=== PATIENT | male | born 1980 | race Caucasian/White ===

== ENCOUNTER 2018-01-12 06:08 | Inpatient (IN) | payer OTHER ==
[~2018-01-12] VITALS: Ht 172.7 cm; Wt 72.6 kg
[2018-01-12] MEDS ORDERED: DEXTROSE 50%-WATER 50 ML DISP.SYRIN ONE ×2 (06:13→06:56)
[2018-01-12] MEDS ORDERED: IV NS 0.9% 1,000 ML BAG IV ONE (06:30)
[2018-01-12 07:00] LABS: BASOPHILS % (AUTO) 0.3 % (0.0-2.0); EOSINOPHILS # (AUTO) 0.2 /CMM (0.0-0.7); EOSINOPHILS % (AUTO) 2.3 % (0.0-6.0); HEMATOCRIT 37 % (39-51); HEMOGLOBIN 12.8 g/dL (13.5-17.5); LYMPHOCYTES # (AUTO) 1.8 /CMM (0.8-4.8); LYMPHOCYTES % (AUTO) 27.1 % (20.0-44.0); MEAN CORPUSCULAR HEMOGLOBIN 31 PG (26.0-33.0); MEAN CORPUSCULAR HGB CONC 35 g/dl (31.0-36.0); MEAN CORPUSCULAR VOLUME 89 fL (80-96); MONOCYTES # (AUTO) 0.3 /CMM (0.1-1.30); MONOCYTES % (AUTO) 3.9 % (2.0-12.0); NEUTROPHILS # (AUTO) 4.3 /CMM (1.8-8.9); NEUTROPHILS % (AUTO) 66.4 % (43.0-81.0); PLATELET COUNT (AUTO) 118 /CMM (150-450); RDW COEFFICIENT OF VARIATION 15.1 (11.5-15.0); RED BLOOD CELL COUNT(AUTO) 4.14 MIL/uL (4.5-6.0); WHITE BLOOD COUNT (AUTO) 6.6 K/uL (4.3-11.0)
[2018-01-12] MEDS ORDERED: DEXTROSE 50%-WATER 50 ML DISP.SYRIN IVP ONE ×2 (07:00)
[2018-01-12] MEDS ORDERED: IV D5/0.45 NACL 1,000 ML IV ONE (07:00)
[2018-01-12 07:06] LABS: APPEARANCE,URINE CLEAR (CLEAR); BILIRUBIN,URINE NEGATIVE (NEGATIVE); BLOOD, URINE 3+ Ery/uL (NEGATIVE); COLOR,URINE YELLOW (YELLOW); KETONES,URINE NEGATIVE (NEGATIVE); LEUKOCYTE ESTERASE ,URINE NEGATIVE (NEGATIVE); NITRITE, URINE NEGATIVE (NEGATIVE); PROTEIN,URINE TRACE mg/dl (NEGATIVE); UGLUCOSE 3+ mg/dL (NEGATIVE); UROBILINOGEN,URINE 0.2 EU/dL (0.2)
[2018-01-12 07:08] VITALS: BP 126/72
[2018-01-12 07:10] LABS: CLINITEST,URINE 1%
[2018-01-12 07:11] LABS: BACTERIA,URINE None seen /HPF (None Seen); RBC,URINE TOO NUMEROUS TO COUN /HPF (0-2); WBC,URINE 0-2 /HPF (0-3)
[2018-01-12 07:12] LABS: SQUAMOUS EPITHELIAL CELL,UR Few /HPF (None Seen)
[2018-01-12 07:16] LABS: ALANINE AMINOTRANSFERASE 65 U/L (12-78); ALBUMIN 3.8 g/dL (3.4-5.0); ALCOHOL, BLOOD 55 mg/dL (0-0); ALKALINE PHOSPHATASE 208 U/L (46-116); ASPARTATE AMINOTRANSFERASE 50 U/L (15-37); BILIRUBIN,DIRECT 0.4 mg/dL (0.0-0.2); BILIRUBIN,TOTAL 1.1 mg/dL (0.2-1.0); CALCIUM, SERUM 9.8 mg/dL (8.5-10.1); CARBON DIOXIDE 22 mmol/L (21-32); CHLORIDE 111 mmol/L (98-107); SODIUM SERUM 149 mmol/L (136-145); UREA NITROGEN, BLOOD 11 mg/dL (7-18)
[2018-01-12 07:20] LABS: GLUCOSE 13 mg/dL (74-106); POTASSIUM 2.6 mmol/L (3.5-5.1)
[2018-01-12 07:21] LABS: ACETAMINOPHEN 0 ug/ml (10-30); SALICYLATE < 0.2 mg/dL (2.8-20.0)
[2018-01-12] MEDS: POTASSIUM CL. PREMIX PERIPHER. 50 ML IV SCH ×2 (08:05→09:05)
== END 2018-01-12 10:01 | disposition left against medical advice (07) | DRG 812 ==
LOC: ER 06:12 → TELE1 08:39
PROVIDERS: ADMIT Nurse Practitioner Acute Care; ATTEND Nurse Practitioner Acute Care
DX: T38.3X2A Poisoning by insulin and oral hypoglycemic [antidiabetic] drugs, intentional self-harm, initial encounter (principal); E11.649 Type 2 diabetes mellitus with hypoglycemia without coma; Y92.009 Unspecified place in unspecified non-institutional (private) residence as the place of occurrence of the external cause; Z79.4 Long term (current) use of insulin; E87.6 Hypokalemia; F32.9 Major depressive disorder, single episode, unspecified; T14.91XA Suicide attempt, initial encounter
CPT/HCPCS: 36415; 71045-TC; 80048-TC; 80076-TC; 80305; 81000-TC; 82962-TC; 85025-TC; A4606; A6402; G0480; J3480; J3490; J7030; Z7610

== ENCOUNTER 2018-10-28 17:38 | Inpatient (IN) | payer OTHER ==
[~2018-10-28] VITALS: Ht 172.7 cm; Wt 64.0 kg
--- NOTE | 2018-10-28 18:00 | NUR ---
PT BIB 'S DEPT FROM [facility] WITH A C/O HYPERGLYCEMIA. PT IS C/O ABD PAIN, DIZZINESS, NAUSEA W/VOMITTING. PT IS AMBULATORY WITH A STEADY GAIT. AA&OX4. PT HAS A CAST ON RT HAND/WRIST. PT IS IN HANDCUFFS. PT WAS PLACED ON THE MONITOR AND CONTINUOUS PULSE OX. ACCUCHECK READ "HIGH" IN TRIAGE. MD IS AWARE.
[2018-10-28] MEDS ORDERED: ONDANSETRON HCL/PF 4 MG/2 ML VIAL ONE (18:12)
[2018-10-28] MEDS ORDERED: HYDROMORPHONE 1 MG/1 ML DISP.SYRIN ONE ×2 (18:13→19:18)
[2018-10-28 18:20] LABS: HEMATOCRIT 43 % (39-51); HEMOGLOBIN 13.9 g/dL (13.5-17.5); LYMPHOCYTES # (AUTO) 0.9 /CMM (0.8-4.8); LYMPHOCYTES % (AUTO) 23.1 % (20.0-44.0); MEAN CORPUSCULAR HGB CONC 33 g/dl (31.0-36.0); MEAN CORPUSCULAR VOLUME 94 fL (80-96); MONOCYTES # (AUTO) 0.2 /CMM (0.1-1.30); MONOCYTES % (AUTO) 6.6 % (2.0-12.0); NEUTROPHILS # (AUTO) 2.5 /CMM (1.8-8.9); NEUTROPHILS % (AUTO) 67.3 % (43.0-81.0); PLATELET COUNT (AUTO) 98 /CMM (150-450); RED BLOOD CELL COUNT(AUTO) 4.51 MIL/uL (4.5-6.0); WHITE BLOOD COUNT (AUTO) 3.7 K/uL (4.3-11.0)
--- NOTE | 2018-10-28 18:20 | NUR ---
URINE SAMPLE OBTAINED AND SENT TO LAB.
[2018-10-28 18:30] LABS: APPEARANCE,URINE Clear (CLEAR); BILIRUBIN,URINE Negative (NEGATIVE); BLOOD, URINE Negative Ery/uL (NEGATIVE); COLOR,URINE Yellow (YELLOW); KETONES,URINE Negative (NEGATIVE); LEUKOCYTE ESTERASE ,URINE Negative (NEGATIVE); NITRITE, URINE Negative (NEGATIVE); PROTEIN,URINE Negative (NEGATIVE); UGLUCOSE 500 MG/DL mg/dL (NEGATIVE); UROBILINOGEN,URINE 0.2 EU/dL (0.2)
[2018-10-28] MEDS ORDERED: IV NS 0.9% 1,000 ML BAG IV ONE (18:30)
[2018-10-28] MEDS ORDERED: HYDROMORPHONE INJ 2 MG/ML DISP.SYRIN IV ONE (18:30)
[2018-10-28] MEDS ORDERED: ONDANSETRON HCL/PF 4 MG/2 ML VIAL IVP ONE (18:30)
[2018-10-28 18:44] LABS: CALCIUM, SERUM 8.7 mg/dL (8.5-10.1); CARBON DIOXIDE 23 mmol/L (21-32); CHLORIDE 98 mmol/L (98-107); POTASSIUM 5.3 mmol/L (3.5-5.1); SODIUM SERUM 130 mmol/L (136-145); UREA NITROGEN, BLOOD 15 mg/dL (7-18)
[2018-10-28 18:45] LABS: BACTERIA,URINE Rare /HPF (None Seen); RBC,URINE 0-2 /HPF (0-2); SQUAMOUS EPITHELIAL CELL,UR Rare /HPF (None Seen); WBC,URINE 0-2 /HPF (0-3)
[2018-10-28 18:47] LABS: GLUCOSE 767 mg/dL (74-106)
[2018-10-28 18:50] LABS: ALANINE AMINOTRANSFERASE 60 U/L (12-78); ALBUMIN 3.3 g/dL (3.4-5.0); ALKALINE PHOSPHATASE 251 U/L (46-116); ASPARTATE AMINOTRANSFERASE 46 U/L (15-37); BILIRUBIN,DIRECT 0.4 mg/dL (0.0-0.2); BILIRUBIN,TOTAL 1.2 mg/dL (0.2-1.0)
[2018-10-28 18:51] LABS: TOTAL PROTEIN, SERUM 7.8 g/dL (6.4-8.2)
[2018-10-28 18:52] LABS: LIPASE 107 U/L (73-393)
[2018-10-28 18:57] LABS: BAND % (MANUAL) 1 % (0.0-5.0); LYMPHOCYTES % (MANUAL) 14 % (16-48); MONOCYTES % (MANUAL) 1 % (0-11.0); NEUTROPHILS % (MANUAL) 84 (42-76)
--- NOTE | 2018-10-28 19:05 | NUR ---
AT BEDSIDE WITH MARSII, HISTORIC SITES REGISTRAR EVALUATING PT. PT C/O ABDOMINAL PAIN AND "ACID FEELING". WAITING FOR ORDERS
[2018-10-28] MEDS ORDERED: MAG HYDROX/AL HYDROX/SIMETH 30 ML UDC ONE (19:17)
[2018-10-28] MEDS ORDERED: LIDOCAINE VISCOUS 2% UD 15 ML UDC ONE (19:17)
[2018-10-28] MEDS ORDERED: MAG HYDROX/AL HYDROX/SIMETH 30 ML UDC PO ONE (19:30)
[2018-10-28] MEDS ORDERED: LIDOCAINE VISCOUS 2% UD 15 ML UDC MM ONE (19:30)
[2018-10-28] MEDS ORDERED: HYDROMORPHONE 1 MG/1 ML DISP.SYRIN IV ONE (19:30)
[2018-10-28] MEDS ORDERED: CT SWABBABLE VALVE TRANS SET 1 EA INFUS.SET MC ONE (19:37)
[2018-10-28] MEDS ORDERED: IV NS 0.9% 250 ML IV ONE (19:37)
[2018-10-28] MEDS ORDERED: IOHEXOL-300 100 ML VIAL IV ONE (19:37)
--- NOTE | 2018-10-28 19:45 | NUR ---
PT TAKEN TO CT VIA SHERRY
--- NOTE | 2018-10-28 19:55 | NUR ---
BACK FROM CT
[2018-10-28] MEDS ORDERED: INSULIN REGULAR, HUMAN 100 UNIT/ML 10 ML VIAL ONE (19:58)
[2018-10-28] MEDS ORDERED: INSULIN REGULAR, HUMAN 100 UNIT/ML 10 ML VIAL IV ONE (20:00)
--- NOTE | 2018-10-28 20:00 | NUR ---
PT SITTING UP IN BED RESTING COMFORTABLY. NO ACUTE DISTRESS NOTED. VSS.
--- NOTE | 2018-10-28 20:05 | NUR ---
BG 542. NOTIFIED
[2018-10-28] MEDS ORDERED: ZOLPIDEM TARTRATE 5 MG TABLET PO PRN (21:00)
[2018-10-28] MEDS ORDERED: HYDROCODONE/APAP 5/325MG 1 EACH TABLET PO PRN (21:00)
[2018-10-28] MEDS ORDERED: DEXTROSE 50%-WATER 50 ML DISP.SYRIN IV PRN (21:00)
[2018-10-28] MEDS ORDERED: ACETAMINOPHEN 325 MG TABLET PO PRN (21:00)
[2018-10-28] MEDS ORDERED: ONDANSETRON HCL/PF 4 MG/2 ML VIAL IVP PRN (21:00)
[2018-10-28] MEDS ORDERED: MAGNESIUM HYDROXIDE 30 ML UDC PO PRN (21:00)
[2018-10-28] MEDS ORDERED: MAG HYDROX/AL HYDROX/SIMETH 30 ML UDC PO PRN (21:00)
--- NOTE | 2018-10-28 21:18 | NUR ---
PT IS GOING TO [facility] 316-1.
--- NOTE | 2018-10-28 21:40 | NUR ---
REPORT GIVEN TO JULIANA DENSON FOR 316-2
[2018-10-28] MEDS ORDERED: INSULIN REGULAR, HUMAN 100 UNIT/ML 10 ML VIAL SQ ONE (22:00)
--- NOTE | 2018-10-28 22:02 | NUR ---
RN OPENING NOTES: -AT 2129 RECEIVED ENDORSEMENT FROM ER SPOKE WITH JOANNE/JULIANA.PATIENT CAME IN WITH HYPERGLYCEMIA-HIGH READING FROM CORRECTION,HE RECEIVED 2 LITERS NS ,HUMALOG 10 UNITS, DILAUDID 1 MG X2,ZOFRAN 4 MG X1,MAALOX X1 FROM ER. -AT 2201 PATIENT ARRIVED IN NC-3 ACCOMPANIED BY 1 STAFF VIA HIRAL POWELL, AMBULATORY, KNOWN DM ON INSULIN SLIDING SCALE, 2 POLICE PRESENT AT BED SIDE, WITH RIGHT HAND CUFF, CIRCULATION MONITORED, ABLE TO MOVE RIGHT HAND, NO REDNESS, NO SKIN CHANGES NOTED, ORIENTED TO UNIT AND STAFF, FALL,SAFETY AND ASPIRATION PRECAUTION OBSERVED, AGREED FOR BODY ASSESSMENT BUT UNABLE TO TAKE PHOTO ON SOME OTHER SKIN ISSUES BUT ABLE TO DOCUMENT THEM ALL, NO EDEMA NOTED,MULTIPLE SKIN DISCOLORATION ON MAXIMINO WITH CAST(PHOTO TAKEN), SKIN DISCOLORATION, OLD SCAB, OLD NEEDLE PRICK ON RAC(PHOTO TAKEN),OLD SCAB AND ABRASION ON THE LEFT KNEE AREA(PHOTO TAKEN); WHILE SKIN DISCOLORATION AND NEEDLE PRICK ON IRMA, SKIN DISCOLORATION ON ABDOMEN AREA, DRY CRACK SKIN ON THE LEFT AND RIGHT FOOT, CRACK SKIN ON THE PENILE FORESKIN, RASHES ON THE FACE (FOREHEAD, RIGHT AND LEFT SIDE OF THE NOSE) ALL OF THEM HE REFUSE PHOTO TO BE TAKEN. Addendum: 10/29/18 at 0817 by DOMINGO GRACE RN CORRECTION: -PATIENT HAS CAST ON THE RIGHT LOWER ARM, AND HE HAS HAND CUFF ON THE LEFT HAND.
[2018-10-28 22:05] VITALS: BP 108/73
[2018-10-28] MEDS: IV NS 0.9% 1,000 ML IV PRN (23:10)
--- NOTE | 2018-10-28 23:10 | NUR ---
RN NOTES: IVF OF NS AT 125 ML/HR SITE: LAC G#20 PATENT STARTED VIA INFUSION PUMP.WILL CONTINUE TO MONITOR.
[2018-10-28] MEDS: BLOOD SUGAR DIAGNOSTIC 1 EACH STRIP IN SCH (23:23)
[2018-10-28] MEDS ORDERED: INSULIN REGULAR, HUMAN 100 UNIT/ML 3 ML VIAL ONE (23:30)
[2018-10-28] MEDS: HYDROMORPHONE INJ 2 MG/ML DISP.SYRIN IV PRN (23:53)
--- NOTE | 2018-10-28 23:53 | NUR ---
RN NOTES: COMPLAINED OF ABDOMINAL DISCOMFORT AND PAIN 08/08, PAIN MEDICATION GIVEN PER REQUEST, NON PHARMACOLOGIC INTERVENTION RENDERED.
--- NOTE | 2018-10-29 01:00 | NUR ---
RN NOTES: ABLE TO SLEEP AT SHORT INTERVALS, BLOOD SUGAR CHECKED-174.KEEP ON CLOSE WATCH, NO COMPLAINTS OF N/V.
[2018-10-29] MEDS: BLOOD SUGAR DIAGNOSTIC 1 EACH STRIP IN SCH ×5 (01:49→16:35)
[2018-10-29] MEDS: INSULIN REGULAR, HUMAN 100 UNIT/ML 3 ML VIAL SQ PRN ×3 (05:57→16:40)
--- NOTE | 2018-10-29 06:02 | NUR ---
RN NOTES: BLOOD SUGAR CHECKED 154, INSULIN GIVEN PER SCALE, WILL CONTINUR TO MONIOTR FOR SIGN OF HYPER/HYPOGLYCEMIA.CALL LIGHT WITHIN EASY REACH.
[2018-10-29] MEDS: HYDROMORPHONE INJ 2 MG/ML DISP.SYRIN IV PRN ×3 (06:40→15:39)
--- NOTE | 2018-10-29 06:40 | NUR ---
RN NOTES: PATIENT REQUEST FOR SNACKS, GIVEN APPLE SAUCE, ASKED FOR PAIN MEDICATION AFTER HE CAME BACK FROM THE BATHROOM, PAIN 9/10 GENERALIZED, GIVEN PRN. NON PHARMACOLOGIC INTERVENTION RENDERED.
[2018-10-29 06:59] LABS: BASOPHILS % (AUTO) 0.6 % (0.0-2.0); EOSINOPHILS % (AUTO) 2.9 % (0.0-6.0); HEMATOCRIT 36 % (39-51); HEMOGLOBIN 12.2 g/dL (13.5-17.5); LYMPHOCYTES # (AUTO) 1.5 /CMM (0.8-4.8); MEAN CORPUSCULAR HGB CONC 34 g/dl (31.0-36.0); MEAN CORPUSCULAR VOLUME 91 fL (80-96); MONOCYTES # (AUTO) 0.3 /CMM (0.1-1.30); MONOCYTES % (AUTO) 5.7 % (2.0-12.0); NEUTROPHILS # (AUTO) 2.7 /CMM (1.8-8.9); NEUTROPHILS % (AUTO) 57.8 % (43.0-81.0); PLATELET COUNT (AUTO) 91 /CMM (150-450); RED BLOOD CELL COUNT(AUTO) 4.01 MIL/uL (4.5-6.0); WHITE BLOOD COUNT (AUTO) 4.6 K/uL (4.3-11.0)
[2018-10-29 07:17] LABS: ALBUMIN 2.6 g/dL (3.4-5.0); CALCIUM, SERUM 8.6 mg/dL (8.5-10.1); CREATININE 0.8 mg/dL (0.6-1.3); MAGNESIUM 1.8 mg/dL (1.8-2.4); PHOSPHORUS 3.4 mg/dL (2.5-4.9); POTASSIUM 3.9 mmol/L (3.5-5.1); TOTAL PROTEIN, SERUM 6.5 g/dL (6.4-8.2)
[2018-10-29] MEDS ORDERED: PANTOPRAZOLE 40 MG TABLET.DR PO SCH (07:30)
--- NOTE | 2018-10-29 07:30 | NUR ---
RN NOTES: LYING COMFORTABLY IN BED, RIGHT HAND CAST CIRCULATION IS OK, WHILE LEFT HAND ON HAND CUFF CIRCULATION ALSO MONITORED.GOOD CAPILLARY REFILL<3SEC, PINK NAIL BED, NO SKIN ISSUES FOUND, WRIST CAN MOVE FREELY ON THE AND CUFF, KEPT ON CLOSE WATCH. FOR LABS THIS MORNING, ENDORSED FOR CONTINUITY OF CARE
[2018-10-29] MEDS ORDERED: INSU100V27 SQ (07:40)
[2018-10-29] MEDS ORDERED: INSU100V7 SQ ×2 (07:40→15:40)
--- NOTE | 2018-10-29 07:45 | NUR ---
MS RN OPENING NOTES RECEIVED PATIENT AWAKE,ALERT, ORIENTED X 4, RESTING COMFORTABLY IN BED, 2 POLICEMEN AT BEDSIDE. PATIENT HAS LEFT HND CUFF NOTED. NO SIGNS OF ACUTE RESPIRATORY DISTRESS NOTED, NO SIGNS OF HYPO OR HYPERGLYCEMIA. PERIPHERAL IV ACCESS ON LEFT AC WITH NS AT 125ML/HR, IV LINE PATENT AND INTACT. BED IN LOW LOCK POSITION, SAFETY MEASURES OBSERVE AT ALL TIME.ALL NEEDS ATTENDED. WILL CONTINUE TO MONITOR ACCORDINGLY.
[2018-10-29 07:47] LABS: EOSINOPHILS % (MANUAL) 2 % (0-4); LYMPHOCYTES % (MANUAL) 28 % (16-48); MONOCYTES % (MANUAL) 6 % (0-11.0); NEUTROPHILS % (MANUAL) 64 (42-76)
[2018-10-29 08:00] VITALS: BP 108/81
[2018-10-29] MEDS: IV NS 0.9% 1,000 ML IV PRN (14:13)
--- NOTE | 2018-10-29 15:20 | NUR ---
MS RN NOTES SEEN AND EXAMINED BY MD Malathi SAINI, DISCUSSED MEDICATION AND TREATMENT FOR DM FOR NON COMPLIANCE. ORDERED FOR DISCHARGE TODAY, PATIENT VERBALIZES UNDERSTANDING THAT HE IS GOING BACK TO LONG TERM.
[2018-10-29] MEDS ORDERED: ASPI-605 PO (15:40)
[2018-10-29] MEDS ORDERED: ATOR20TA PO (15:40)
[2018-10-29] MEDS ORDERED: METF-442 PO (15:40)
[2018-10-29] MEDS ORDERED: LISI-607 PO (15:40)
[2018-10-29] MEDS ORDERED: INSU100C10 SQ (15:40)
--- NOTE | 2018-10-29 15:40 | NUR ---
MS RN NOTES PATIENT COMPLAINED OF ABDOMINAL PAIN 9/, DILAUDID GIVEN ORDERED. WILL CONTINUE TO MONITOR.
[2018-10-29 16:00] VITALS: BP 113/75
[2018-10-29] MEDS ORDERED: KETOCONAZOLE 2% CREAM 15 GM TUBE TP SCH (16:00)
[2018-10-29] MEDS ORDERED: NYSTATIN TOP POWDER 15 GM BOTTLE TP SCH (17:00)
--- NOTE | 2018-10-29 17:22 | NUR ---
RN NOTES APPLIED NIZORAL CREAM TO FACIAL RASH ORDERED. UN-ABLE TO APPLY NYSTATIN POWDER TO PT'S GROINS, PHARMACIST JULIÁN SAID THAT THEY DON'T HAVE AVAILABLE STOCK OF NYSTATIN POWDER. PT GIVEN PRESCRIPTION OF NYSTATIN POWDER FOR DISCHARGE. TODAY..
--- NOTE | 2018-10-29 17:49 | NUR ---
MS GRINDER TENDER NOTES PATIENT DISCHARGE TO SENIOR CARE IN STABLE CONDITION. ALERT, ORIENTED X 4, NO SIGNS OF ANY PAIN OR DISCOMFORT VOICED UPON DISCHARGE, REMOVED PERIPHERAL IV ACCESS, NO BLEEDING NOTED TOLERATED WELL, NO ADVERSE REACTION NOTED. VITAL SIGNS TAKEN AND RECORDED. PHOTOS OF SKIN CONDITION IN THE CHART. HEALTH TEACHINGS GIVEN / SMOKING CESSATION EDUCATION GIVEN, AND PATIENT VERBALIZED UNDERSTANDING. PATIENT DISCHARGE PAPERS AND PRESCRIPTION GIVEN TO AUTOMATIC LUMP MAKING MACHINE TENDER. PATIENT LEFT THE UNIT AT 1745 AMBULATORY AND ON HANDCUFFS ESCORTED BY 2 AUTOMATIC LUMP MAKING MACHINE TENDER. CHARGE NURSE AWARE OF PATIENTS' DISCHARGE.
== END 2018-10-29 18:15 | DRG 638 ==
LOC: ER 17:39 → MED 21:21
PROVIDERS: ADMIT Nurse Practitioner Acute Care; ATTEND Nurse Practitioner Acute Care
DX: E11.65 Type 2 diabetes mellitus with hyperglycemia (principal); K86.1 Other chronic pancreatitis; R18.8 Other ascites; E46 Unspecified protein-calorie malnutrition; K76.6 Portal hypertension; I85.00 Esophageal varices without bleeding; Z79.4 Long term (current) use of insulin; Z91.14 Patient's other noncompliance with medication regimen; K76.0 Fatty (change of) liver, not elsewhere classified; S22.41XD Multiple fractures of ribs, right side, subsequent encounter for fracture with routine healing; X58.XXXD Exposure to other specified factors, subsequent encounter; Z68.21 Body mass index [BMI] 21.0-21.9, adult; I86.8 Varicose veins of other specified sites; I70.0 Atherosclerosis of aorta; R42 Dizziness and giddiness
CPT/HCPCS: 36415; 71045-TC; 80048-TC; 80053-TC; 80061-TC; 80076-TC; 81000-TC; 82010-TC; 82962-TC; 83690-TC; 83735-TC; 84100-TC; 84484-TC; 85025-TC; 85730-TC; 87081-TC; A4606; G0378; J1170; J1815; J2405; J7030; J7050; Q9967; Z7610

== ENCOUNTER 2019-09-26 00:01 | Emergency (ER) | payer MEDICAID ==
[~2019-09-26] VITALS: Ht 162.6 cm; Wt 65.8 kg
[~2019-09-26 00:01] MED LIST: ASPI-605 PO; ATOR20TA PO; INSU100C10 SQ; INSU100V27 SQ; INSU100V7 SQ; LISI-607 PO; METF-442 PO
[2019-09-26 00:05] VITALS: BP 128/77
[2019-09-26] MEDS ORDERED: CLINDAMYCIN IV RTU IN D5W 900 MG/50 ML PIGGYBACK IV ONE (01:30)
[2019-09-26] MEDS ORDERED: HYDROCODONE/APAP 10/325MG 1 EA TABLET PO ONE (01:30)
[2019-09-26] MEDS ORDERED: ONDANSETRON HCL/PF - ER 4 MG/2 ML VIAL IV ONE (01:30)
[2019-09-26] MEDS ORDERED: CLINDAMYCIN 900 MG/6 ML VIAL ONE (01:38)
[2019-09-26] MEDS ORDERED: HYDROCODONE/APAP 10/325MG 1 EA TABLET ONE (01:39)
[2019-09-26] MEDS ORDERED: ONDANSETRON HCL/PF 4 MG/2 ML VIAL ONE (01:39)
== END 2019-09-26 02:47 | disposition home or self-care (01) ==
LOC: ER 00:01
DX: Z41.2 Encounter for routine and ritual male circumcision (principal); E11.9 Type 2 diabetes mellitus without complications; F17.200 Nicotine dependence, unspecified, uncomplicated; Z79.82 Long term (current) use of aspirin; Z79.899 Other long term (current) drug therapy; Z79.4 Long term (current) use of insulin; Z79.84 Long term (current) use of oral hypoglycemic drugs
CPT/HCPCS: 96365; 96375; 99283; 99406; A4216; J2405 ×2; J3490 ×2

== ENCOUNTER 2019-10-12 00:03 | Inpatient (IN) | payer MEDICAID ==
[~2019-10-12] VITALS: Ht 162.6 cm; Wt 54.5 kg
[2019-10-12] VITALS (16 sets, daily range): BP systolic 101–140; BP diastolic 63–84
[2019-10-12 00:26] LABS: BASOPHILS % (AUTO) 0.6 % (0.0-2.0); EOSINOPHILS % (AUTO) 1.9 % (0.0-6.0); HEMATOCRIT 39 % (39-51); HEMOGLOBIN 12.7 g/dL (13.5-17.5); LYMPHOCYTES # (AUTO) 0.7 /CMM (0.8-4.8); LYMPHOCYTES % (AUTO) 18.8 % (20.0-44.0); MEAN CORPUSCULAR HGB CONC 33 g/dl (31.0-36.0); MEAN CORPUSCULAR VOLUME 94 fL (80-96); MONOCYTES # (AUTO) 0.2 /CMM (0.1-1.30); MONOCYTES % (AUTO) 5.3 % (2.0-12.0); NEUTROPHILS # (AUTO) 2.6 /CMM (1.8-8.9); NEUTROPHILS % (AUTO) 73.4 % (43.0-81.0); PLATELET COUNT (AUTO) 127 /CMM (150-450); RED BLOOD CELL COUNT(AUTO) 4.12 MIL/uL (4.5-6.0); WHITE BLOOD COUNT (AUTO) 3.6 K/uL (4.3-11.0)
[2019-10-12] MEDS ORDERED: IV NS 0.9% 1,000 ML BAG IV ONE (00:30)
[2019-10-12 00:41] LABS: ALANINE AMINOTRANSFERASE 51 U/L (12-78); ALBUMIN 3.7 g/dL (3.4-5.0); ALKALINE PHOSPHATASE 296 U/L (46-116); ASPARTATE AMINOTRANSFERASE 67 U/L (15-37); BILIRUBIN,DIRECT 0.6 mg/dL (0.0-0.2); CALCIUM, SERUM 9.4 mg/dL (8.5-10.1); CARBON DIOXIDE 27 mmol/L (21-32); CHLORIDE 92 mmol/L (98-107); CREATININE 1.4 mg/dL (0.6-1.3); LIPASE 71 U/L (73-393); POTASSIUM 4.5 mmol/L (3.5-5.1); SODIUM SERUM 126 mmol/L (136-145); TOTAL PROTEIN, SERUM 8.4 g/dL (6.4-8.2); UREA NITROGEN, BLOOD 11 mg/dL (7-18)
[2019-10-12 00:54] LABS: GLUCOSE 1220 mg/dL (74-106)
[2019-10-12] MEDS ORDERED: INSULIN REGULAR, HUMAN 100 UNIT/ML 10 ML VIAL ONE (01:03)
[2019-10-12] MEDS ORDERED: INSULIN REGULAR, HUMAN 100 UNIT in IV NS 0.9% 99 ML IV STA ×2 (01:10)
--- NOTE | 2019-10-12 01:10 | NUR ---
INSULINE DRIP STARTED AT 7 UNITS/ ML PER PDR'S ORDER. RAC 20 G. A SECOND PIV LINE STARTED ON LAC A8G . WILL CONT TO MONITOR CLOSELY
[2019-10-12] MEDS ORDERED: MORPHINE SULFATE INJ 4 MG/ML DISP.SYRIN ONE ×2 (01:30→03:48)
[2019-10-12 01:45] LABS: APPEARANCE,URINE Clear (CLEAR); BILIRUBIN,URINE Negative (NEGATIVE); BLOOD, URINE Trace-intact Ery/uL (NEGATIVE); COLOR,URINE Yellow (YELLOW); KETONES,URINE Negative (NEGATIVE); LEUKOCYTE ESTERASE ,URINE Negative (NEGATIVE); NITRITE, URINE Negative (NEGATIVE); PROTEIN,URINE Negative (NEGATIVE); UGLUCOSE 500 MG/DL mg/dL (NEGATIVE); UROBILINOGEN,URINE 0.2 EU/dL (0.2)
--- NOTE | 2019-10-12 02:10 | NUR ---
FSBS CHECK DONE AT THE BED SIDE W/ READING "HI". MD MADE AWARE . PER MD TO CONTINUE THE SAME DOSE OF 7 UNIT OF INSULIN PER HOUR. PT IN BED AWAKE AND RESPONSIVE. REMAINED ON CONTINUOUS MONITORING
[2019-10-12 02:11] LABS: BACTERIA,URINE None seen /HPF (None Seen); RBC,URINE 0-2 /HPF (0-2); SQUAMOUS EPITHELIAL CELL,UR Few /HPF (None Seen); WBC,URINE 0-2 /HPF (0-3)
[2019-10-12] MEDS ORDERED: IV NS 0.9% 1,000 ML IV PRN ×2 (02:32→12:37)
[2019-10-12] MEDS ORDERED: ZOLPIDEM TARTRATE 5 MG TABLET PO PRN (03:00)
[2019-10-12] MEDS ORDERED: ACETAMINOPHEN 325 MG TABLET PO PRN (03:00)
[2019-10-12] MEDS ORDERED: MAG HYDROX/AL HYDROX/SIMETH 30 ML UDC PO PRN (03:00)
[2019-10-12] MEDS ORDERED: Z GUARD REMEDY 2 OZ OINT TP PRN (03:00)
[2019-10-12] MEDS ORDERED: MAGNESIUM HYDROXIDE 30 ML UDC PO PRN (03:00)
[2019-10-12] MEDS ORDERED: ONDANSETRON HCL/PF 4 MG/2 ML VIAL IVP PRN (03:00)
--- NOTE | 2019-10-12 03:45 | NUR ---
FSBS: 526 PER TANNER TO DECREASE THE INSULINE DRIP RATE TO 5UNIT/ HOUR. Monica UNDERWOOD AT THE STATION MADE AWARE
--- NOTE | 2019-10-12 03:55 | NUR ---
ICU ROOM 262
[2019-10-12] MEDS ORDERED: MORPHINE SULFATE INJ 4 MG/ML DISP.SYRIN IV ONE ×2 (04:00→04:30)
--- NOTE | 2019-10-12 04:30 | NUR ---
ICU/RN-ADMITTED THIS 39 YEAR OLD HOMELESS MALE FROM ER PER ACLS PROTOCOL. NURSING FOCUS: ALTERED NUTRITION R/T DIAGNOSIS:HYPEROSMOLAR HYPER GLYCEMIC STATE.ROUTINE ICU ADMISSION CARE INITIATED. PT. IS AWAKE, ALERT, ORIENTED X3, DENIES PAIN AT THIS TIME. EKG SR W/ HR-70. BP-123/83, ON ROOM AIR, EUPNEIC SATS.-99%. ON INSULIN DRIP AT 5 UNITS/HR, LATEST ACCU CHECK-526MG/DL. WILL CONTINUE TO TITRATE INSULIN DRIP PER NON DKA PROTOCOL USING ALGORITHM 1. WILL CHECK BS Q 1HR. PER PROTOCOL. AFEBRILE. PT. IS A FULL CODE.
--- NOTE | 2019-10-12 04:40 | NUR ---
pt was transferred to ICU under acls
[2019-10-12] MEDS: BLOOD SUGAR DIAGNOSTIC 1 EACH STRIP IN SCH ×11 (05:03→22:01)
[2019-10-12] MEDS: INSULIN REGULAR, HUMAN 100 UNIT in IV NS 0.9% 99 ML IV PRN ×4 (05:05→06:03)
[2019-10-12 05:42] LABS: CALCIUM, SERUM 8.9 mg/dL (8.5-10.1); CREATININE 0.8 mg/dL (0.6-1.3)
--- NOTE | 2019-10-12 06:00 | NUR ---
ICU/RN-PT. SLEEPING. AROUSABLE, ORIENTED TO NAME AND PLACE. REMAINS ON INSULIN GTT. AT 2 UNITS/HR, LATEST ACCU CHECK-233. WILL CONTINUE TO MONITOR PER PROTOCOL CONTINUE TO DENY PAIN. PT. NOTED TO HAVE SKIN ISSUES. REFER TO WOUND PHOTO AND SKIN PROBLEM ASSESSMENT FOR DETAILS.
[2019-10-12] MEDS: PANTOPRAZOLE 40 MG VIAL IV SCH (07:52)
--- NOTE | 2019-10-12 08:32 | NUR ---
received pt from night shit, s/p HHS, last sugar 166, a/o x4, SR, RA sat well, NPO, urinates in urinal, no BM, insulin drip at 1.5 unit/hr, v/s stable, no pain, pt turns and repositions by himself.
--- NOTE | 2019-10-12 10:00 | NUR ---
icu airport manager: notes home meds reviewed with pt at bedside and unable to recall his some of his meds, but able to provide some like ativan 2mg tid prn and protonix 40mg po daily.
[2019-10-12] MEDS ORDERED: LORA-259 PO (10:10)
[2019-10-12] MEDS ORDERED: PANT40TA2 PO (10:10)
[2019-10-12] MEDS ORDERED: POTASSIUM CL. PREMIX PERIPHER. 50 ML IV SCH (11:15)
--- NOTE | 2019-10-12 11:43 | NUR ---
Social service consult requested by Dr Sow for homelessness. Pt. is a 39 year old male who was admitted to [facility] ICU for severe hyperglycemia. Pt. is Diabetic. SW met with the pt. bedside. Pt. is alert and oriented x 3. Pt. is non-cooperative with SW during the assessment. SW to come back at a later time to reassess the pt.
[2019-10-12] MEDS ORDERED: DEXTROSE 50%-WATER 50 ML DISP.SYRIN IV PRN ×2 (13:00→17:30)
[2019-10-12] MEDS ORDERED: INSULIN REGULAR, HUMAN 100 UNIT/ML 3 ML VIAL SQ PRN (13:00)
[2019-10-12] MEDS ORDERED: POTASSIUM CHLORIDE 20 MEQ TAB.PRT.SR PO SCH (13:00)
[2019-10-12] MEDS ORDERED: POTASSIUM CHLORIDE 20 MEQ POWDER PACKET PO ONE (13:00)
[2019-10-12] MEDS: POTASSIUM CHLORIDE 20 MEQ TAB.PRT.SR PO SCH ×2 (13:09→14:37)
[2019-10-12] MEDS: HYDROCODONE/APAP 5/325MG 1 EACH TABLET PO PRN ×2 (13:09→23:58)
--- NOTE | 2019-10-12 16:13 | NUR ---
pt is resting in the bed, a/o x4, SR, RA sat well, v/s stable, no pain, tolerates diet, urinates in urinal, pt cleaned and changed.
--- NOTE | 2019-10-12 16:45 | NUR ---
MS SHEEP FARM WORKER NOTES RECEIVED TRANSFER FROM ICU.ALERT AND ORIENTED X4. AMBULATES AD KELIN WITH SKIN INTACT.NO SOB ON ROOM AIR. DENIES ANY PAIN OR DISTRESS.ORIENTED TO HIS NEW ROOM AND USE OF CALL LIGHT. CALL LIGHT PLACED WITHIN REACH.
--- NOTE | 2019-10-12 16:46 | NUR ---
pt transferred to med/surge, v/s stable, no pain.
--- NOTE | 2019-10-12 17:18 | NUR ---
BS 407-NOTIFIED DR BRICENO WITH ORDERS TO CHANGE MILD SS TO AGGRESSIVE SLIDING SCALE.ADMINISTERED 10 UNITS HUMULIN R AND WE'LL RECHECK LATER.
[2019-10-12] MEDS ORDERED: BLOOD SUGAR DIAGNOSTIC 1 EACH STRIP IN SCH (17:30)
--- NOTE | 2019-10-12 17:41 | NUR ---
RECHECKED PT'S BS :424 AFTER ADMINISTERING 10 UNITS OF HUMULIN R BASED ON THE FORMER MILD SS AND NOW WAS CHANGED TO AGGRESSIVE SS.NOTIFIED DARIUSZ GARZA WITH ORDERS TO ADMINISTER 20 UNITS OF AGGRESSIVE SS.
--- NOTE | 2019-10-12 18:00 | NUR ---
Pts BS: 424 before eating dinner.DARIUSZ Molina made aware with orders to administer 20 units as per aggressive sl scale but pt refused and only wanted 15 units.Pt ate 100%dinner. Will recheck BS later
[2019-10-12] MEDS: INSULIN REGULAR, HUMAN 100 UNIT/ML 3 ML VIAL SQ PRN (18:09)
--- NOTE | 2019-10-12 20:00 | NUR ---
MS FOOD AND BEVERAGE CONTROLLER INITIAL NOTES RECEIVED PT IN BED RESTING WITH EYES CLOSED BUT AROUSES TO TOUCH, RESPIRATION EVEN AND UNLABORED, NOT IN ANY ACUTE DISTRESS NOTED. STILL WITH IVF STILL INFUSING. KEPT HIM WARM AND COMFORTABLE AT ALL TIMES. PLACE CALL LIGHT AT REACH. WILL CONTINUE MONITORING.
[2019-10-12] MEDS ORDERED: INSULIN GLARGINE, 100 UNIT/ML CARTRIDGE SQ SCH (22:00)
--- NOTE | 2019-10-12 22:05 | NUR ---
MS DESK PENS ASSEMBLER NOTES BLOOD SUGAR CHECKED DONE 110, NO INSULIN DUE AT THIS TIME. LANTUS ALSO HOLD PER MD ORDERED. NO SIGNS OF HYPO /HYPER GLYCEMIA NOTED. KEPT HIM WARM AND COMFORTABLE AT ALL TIMES. PT STILL RESTING . WILL CONTINUE MONITORING. PLACE CALL LIGHT AT REACH.
[2019-10-12] MEDS: *INSULIN REGULAR(HUMULIN R)HUM 100 UNIT/ML VIAL SQ PRN (22:06)
--- NOTE | 2019-10-12 23:58 | NUR ---
MS TRAVELING ACCOUNTANT NOTES PT CALLED AND COMPLAINT OF ABDOMINAL PAIN. NORCO TABLET GIVEN, SNACKS ALSO SERVED. WILL CONTINUE MONITORING.
[2019-10-13] MEDS: LORAZEPAM INJ 2 MG/ML VIAL IV PRN (01:04)
--- NOTE | 2019-10-13 01:05 | NUR ---
MS RN NOTES: PATIENT WAS AGITATED AND YELLING INAPPROPRIATE WORDS TO STAFF. ATIVAN 1MG IV WAS GIVEN. WILL CONTINUE TO MONITOR.
--- NOTE | 2019-10-13 03:16 | NUR ---
MS LAP GRINDER NOTES PT SLEEPING AT THIS TIME. NO SIGNS OF ANY ACUTE DISTRESS NOTED. WILL CONTINUE MONITORING. PLACE CALL LIGHT AT REACH.
--- NOTE | 2019-10-13 06:00 | NUR ---
ms maxi notes we checked the patient with the laborer poultry hatchery because pt refused to have some blood draw even i explained to him why it needed. Instead pt saying bad words" fuck you" 5x then leave me alone. he also refused the IVF to be infused. no signs of any discomfort noted or any acute distress noted. will continue monitoring.
--- NOTE | 2019-10-13 07:09 | NUR ---
MS CONTINUOUS MINER CLOSING NOTES PT REMAINS RESTING WITH EYES CLOSED BUT AROUSE TO TOUCH. STABLE [place] THE NIGHT AND SLEPT WELL. STILL REFUSING BLOOD SUGAR CHECKED. NO SIGNS OF HYPO /HYPER GLYCEMIA NOTED. ENDORSE TO AM NURSE FOR CONTINUITY OF CARE. PLACE CALL LIGHT AT REACH.
[2019-10-13] MEDS: BLOOD SUGAR DIAGNOSTIC 1 EACH STRIP IN SCH ×4 (07:30→22:04)
--- NOTE | 2019-10-13 07:43 | NUR ---
MS RN OPENING NOTES Patient received on room air, no sob noted, patient asleep in his bed and denies pain at this time. Asked patient if I can draw blood to check his blood sugar but patient refused x3. Patient stated he does not want it and just wants water. Explained to the patient that he is here due to high blood sugar and he still refused BG check. Bed at the lowest setting, call light within reach, side rails up x2.
[2019-10-13 08:00] VITALS: BP 107/68
[2019-10-13] MEDS: PANTOPRAZOLE 40 MG VIAL IV SCH (08:18)
--- NOTE | 2019-10-13 10:57 | NUR ---
WOUND CARE CONSULT: PT PRESENTS INDEPENDENT WITH BED MOBILITY AND CONTINENT WITH DRY SCAB TO RT LOWER LEG, NO TENDERNESS OR DRAINAGE NOTED. DEFER TO MD. WILL SEE PRN.
[2019-10-13 11:57] LABS: BASOPHILS % (AUTO) 0.5 % (0.0-2.0); HEMATOCRIT 37 % (39-51); HEMOGLOBIN 12.2 g/dL (13.5-17.5); LYMPHOCYTES # (AUTO) 0.9 /CMM (0.8-4.8); LYMPHOCYTES % (AUTO) 17.1 % (20.0-44.0); MEAN CORPUSCULAR HGB CONC 33 g/dl (31.0-36.0); MEAN CORPUSCULAR VOLUME 91 fL (80-96); MONOCYTES # (AUTO) 0.2 /CMM (0.1-1.30); MONOCYTES % (AUTO) 3.2 % (2.0-12.0); NEUTROPHILS # (AUTO) 3.9 /CMM (1.8-8.9); NEUTROPHILS % (AUTO) 76.2 % (43.0-81.0); PLATELET COUNT (AUTO) 120 /CMM (150-450); RED BLOOD CELL COUNT(AUTO) 4.02 MIL/uL (4.5-6.0); WHITE BLOOD COUNT (AUTO) 5.1 K/uL (4.3-11.0)
[2019-10-13] MEDS: INSULIN REGULAR, HUMAN 100 UNIT/ML 3 ML VIAL SQ PRN ×2 (12:02→17:20)
--- NOTE | 2019-10-13 12:10 | NUR ---
RN NOTES Patient's Blood sugar was at 569. MD aware, coverage given.
[2019-10-13 12:19] LABS: CALCIUM, SERUM 8.7 mg/dL (8.5-10.1); CREATININE 1.1 mg/dL (0.6-1.3); MAGNESIUM 1.6 mg/dL (1.8-2.4); PHOSPHORUS 3.3 mg/dL (2.5-4.9); POTASSIUM 4.5 mmol/L (3.5-5.1)
[2019-10-13 12:30] LABS: THYROID STIMULATING HORMONE 1.07 uIU/mL (0.358-3.74)
--- NOTE | 2019-10-13 13:12 | NUR ---
RN NOTES BS of 585. MD aware. stated that since coverage was given an hour ago, it is okay to not give coverage at this time.
[2019-10-13 16:08] VITALS: BP 122/72
--- NOTE | 2019-10-13 18:38 | NUR ---
RN CLOSING NOTES patient remains on room air, no sob noted, patient took insulin today. patien tremains a/o x4. L ac 18 with NS 75 ml per hour. Bed at the lowest setting, call light within reach, side rails up x2.
--- NOTE | 2019-10-13 19:10 | NUR ---
MS RN OPENING NOTES Received patient asleep, easily awaken. On RA, no SOB/respiratory distress noted at this time. No s/sx of discomfort noted at this time. Kept on bed clean, dry and comfortable. Call light within easy reach. On fall precautions. Will continue to monitor accordingly.
--- NOTE | 2019-10-13 19:30 | NUR ---
MS RN NOTES Patient refused IVF despite education provided. Encouraged patient to increase oral fluid intake unless contraindicated.
[2019-10-13 20:00] VITALS: BP 129/83
[2019-10-13] MEDS: MORPHINE SULFATE INJ 2 MG/ML DISP.SYRIN IV PRN (21:21)
[2019-10-13] MEDS: INSULIN GLARGINE, 100 UNIT/ML CARTRIDGE SQ SCH (21:23)
[2019-10-13] MEDS: *INSULIN REGULAR(HUMULIN R)HUM 100 UNIT/ML VIAL SQ PRN (21:27)
--- NOTE | 2019-10-14 06:32 | NUR ---
MS RN CLOSING NOTES Patient asleep, easily awaken. On RA, no SOB/respiratory distress noted. Checked blood sugar, 227. Per patient, give the insulin later when food is ready. Informed patient, the AM nurse will give the insulin. Educated patient on the importance of hydration, verbalized understanding. Patient ambulates independently, able to perform ADLs without assistance. All nursing needs attended, due meds given as ordered. No new complaints made. Endorsed to the next nurse.
[2019-10-14] MEDS: BLOOD SUGAR DIAGNOSTIC 1 EACH STRIP IN SCH ×4 (06:59→21:19)
--- NOTE | 2019-10-14 07:44 | NUR ---
RN OPENING NOTES Patient remains on room air, no sob noted, a/o x4 with RAC #20 SL, refusing placement of IVF at this time. Patient denies patient at this time. Bed at the lowest setting, call light within reach, side rails up x2.
[2019-10-14 08:00] VITALS: BP 109/97
[2019-10-14] MEDS: INSULIN REGULAR, HUMAN 100 UNIT/ML 3 ML VIAL SQ PRN ×3 (08:01→17:31)
[2019-10-14] MEDS: PANTOPRAZOLE 40 MG VIAL IV SCH (08:11)
[2019-10-14] MEDS: MORPHINE SULFATE INJ 2 MG/ML DISP.SYRIN IV PRN ×3 (09:03→19:36)
[2019-10-14 16:00] VITALS: BP 106/70
--- NOTE | 2019-10-14 18:14 | NUR ---
RN NOTES closing Patient remains on room air, no sob noted, remains a/o x4. Patient with R AC 20 SL and L AC 18 SL. Patient refusing IVF at this time. Patient took all insulin today and gave permission to take blood for blood glucose checks. Bed at the lowest setting, call light within reach, side rails up x2. Will give report to NOC RN for MARILIA bedside.
--- NOTE | 2019-10-14 19:05 | NUR ---
RN MS OPENING NOTES RECEIVED PATIENT IN BED AWAKE ALERT AND ORIENTED X 4, RESPIRATIONS EVEN AND UNLABORED WITH EQUAL RISE AND FALL OF CHEST, DENIES ANY PAIN OR DISCOMFORT AT THIS TIME, REFUSES IVF STATES " NO I DONT WANT IT IM DRINKING WATER". IV SITE TO RIGHT AC AND LEFT AC INTACT AND PATENT, NO REDNESS, NO INFILTRATION PRESENT, ORIENTED TO STAFF AND CALL LIGHT AND KEPT WITHIN REACH, SAFETY PRECAUTIONS IN PLACE, LOW BED AND LOCKED, ALL NEEDS ATTENDED AT THIS TIME WILL CONTINUE TO MONITOR.
--- NOTE | 2019-10-14 19:36 | NUR ---
RN MS NOTES PATIENT COMPLAINT OF PAIN TO RIGHT LOWER BACK 08/08 REQUESTING FOR "SHOT". PRN MORPHINE OFFERED AND GIVEN ORDERED, VS WNL. WILL CONTINUE TO MONITOR FOR EFFECTIVENESS.
[2019-10-14 20:00] VITALS: BP 112/77
--- NOTE | 2019-10-14 20:10 | NUR ---
RN MS NOTES ACCUCHECK TAKEN AT THIS TIME PRIOR TO PATIENT EATING DESPITE DIET EXPLANATION PATIENT STATES " HE IS VERY HUNGRY AND WANTS SANDWHICH , JUICE AND CRACKERS"
[2019-10-14] MEDS: LORAZEPAM INJ 2 MG/ML VIAL IV PRN (21:16)
--- NOTE | 2019-10-14 21:16 | NUR ---
RN MS NOTES PATIENT STATED " CAN I HAVE ANY ANXIETY MEDICATION ATIVAN" APPEARS ANXIOUS, PRN ATIVAN GIVEN ORDERED, 0.5ML/1MG. 1MG WASTED AND WITNESSED WITH ANOTHER RN. WILL CONTINUE TO MONITOR FOR EFFECTIVENESS.
[2019-10-14] MEDS: INSULIN GLARGINE, 100 UNIT/ML CARTRIDGE SQ SCH (21:21)
[2019-10-14] MEDS: *INSULIN REGULAR(HUMULIN R)HUM 100 UNIT/ML VIAL SQ PRN (21:22)
[2019-10-15] MEDS: INSULIN REGULAR, HUMAN 100 UNIT/ML 3 ML VIAL SQ PRN (06:05)
--- NOTE | 2019-10-15 06:15 | NUR ---
rn ms notes accucheck taken 422 repeat 448 protocol for insulin sliding scale done, 20 units given and val color[place] aware no new orders at this time,patient is asymptomatic, non compliant with diet despite education. states " my blood sugar is naturally high".
[2019-10-15] MEDS: MORPHINE SULFATE INJ 2 MG/ML DISP.SYRIN IV PRN (06:21)
[2019-10-15] MEDS: BLOOD SUGAR DIAGNOSTIC 1 EACH STRIP IN SCH (06:30)
--- NOTE | 2019-10-15 06:42 | NUR ---
RN MS CLOSING NOTES PATIENT IN BED AWAKE ALERT AND ORIENTED X 4, RESPIRATIONS EVEN AND UNLABORED WITH EQUAL RISE AND FALL OF CHEST, REFUSES IVF, IV SITE TO RIGHT AC AND LEFT AC INTACT AND PATENT, NO REDNESS, NO INFILTRATION PRESENT, CALL LIGHT KEPT WITHIN REACH, SAFETY PRECAUTIONS IN PLACE, LOW BED AND LOCKED, ALL NEEDS ATTENDED AT THIS TIME WILL CONTINUE TO MONITOR AND ENDORSE TO NEXT SHIFT. NOTED PATIENT IS NON COMPLAINT.
[2019-10-15 08:00] VITALS: BP 103/71
[2019-10-15] MEDS: PANTOPRAZOLE 40 MG VIAL IV SCH (08:30)
[2019-10-15] MEDS: LORAZEPAM INJ 2 MG/ML VIAL IV PRN (08:30)
[2019-10-15] MEDS ORDERED: HYDR-4384 PO ×3 (09:30→11:01)
--- NOTE | 2019-10-15 11:15 | NUR ---
Patient cleared for discharge by MD.Patient awake alert and oriented x4 , no distress noted, breathing unlabored and even on room air.VS are stable and BS under control. Patient educated on new prescribed medications, including insulin Lantus; patient verbalized understanding. Prescription sent to preferred pharmacy ([facility]). Patient refused placement and recourses provided;patient signed homeless waiver form and stated he will arrange his own living arrangement using recourses provided by the Hospital. Patient received a TAP card. Valuable form reviewed and sighed and all belongings with the patient. IV assess lines removed , ID line removed. Patient refused discharge pictures. All needs attended prior to discharge. Patient safely transferred to [facility] via wheelchair accompanied by FIFI Dye.
== END 2019-10-15 11:50 | disposition home or self-care (01) | DRG 420 ==
LOC: ER 00:03 → ICU 03:59 → MED 16:25
PROVIDERS: ADMIT Student in an Organized Health Care Education/Training Program; ATTEND Nurse Practitioner Acute Care
DX: E11.00 Type 2 diabetes mellitus with hyperosmolarity without nonketotic hyperglycemic-hyperosmolar coma (NKHHC) (principal); N17.0 Acute kidney failure with tubular necrosis; D69.6 Thrombocytopenia, unspecified; K74.60 Unspecified cirrhosis of liver; K86.1 Other chronic pancreatitis; E87.1 Hypo-osmolality and hyponatremia; E11.65 Type 2 diabetes mellitus with hyperglycemia; Z59.0 Homelessness; D64.9 Anemia, unspecified; E87.6 Hypokalemia; F12.90 Cannabis use, unspecified, uncomplicated; F15.90 Other stimulant use, unspecified, uncomplicated; F17.210 Nicotine dependence, cigarettes, uncomplicated; Z91.19 Patient's noncompliance with other medical treatment and regimen; Z90.49 Acquired absence of other specified parts of digestive tract; Z79.84 Long term (current) use of oral hypoglycemic drugs; Z79.4 Long term (current) use of insulin; Z71.6 Tobacco abuse counseling; Z79.82 Long term (current) use of aspirin; Z91.14 Patient's other noncompliance with medication regimen
CPT/HCPCS: 36415; 71045-TC; 80048-TC; 80061-TC; 80076-TC; 81000-TC; 82962-TC; 83690-TC; 83735-TC; 84100-TC; 84443-TC; 84484-TC; 85025-TC; 87081-TC; 97116-TC; 97530-TC; C9113; G0378; J1815; J2060; J2270; J3480; J7030

== ENCOUNTER 2022-09-13 23:32 | Emergency (ER) | payer MEDICAID, OTHER ==
[~2022-09-13] VITALS: Ht 170.2 cm; Wt 77.1 kg
[~2022-09-13 23:32] MED LIST changes: -ASPI-605 PO; +HYDR-4384 PO; -LISI-607 PO; +LISI-768 PO
[2022-09-13 23:41] VITALS: BP 130/84
--- NOTE | 2022-09-14 | NUR ---
Patient bibra99 from [place], blood glucose high reading, non compliant per report. On room air, breathing normally and unlabored. Kept comfortable, will continue to monitor accordingly.
--- NOTE | 2022-09-14 00:19 | NUR ---
SPARKER AND PATCHER AT PT'S BEDSIDE
[2022-09-14] MEDS ORDERED: INSULIN REGULAR, HUMAN 100 UNIT/ML 10 ML VIAL ONE (00:24)
[2022-09-14] MEDS: INSULIN ASPART/LISPRO 100 UNIT/ML CARTRIDGE SQ STA ×2 (00:25→00:42)
[2022-09-14] MEDS ORDERED: IV NS 0.9% 1,000 ML IV ONE ×2 (00:30→02:30)
[2022-09-14] MEDS ORDERED: INSULIN REGULAR, HUMAN 100 UNIT/ML 10 ML VIAL IV ONE (01:00)
[2022-09-14 01:23] LABS: BASOPHILS % (AUTO) 0.6 % (0.0-2.0); EOSINOPHILS % (AUTO) 1.8 % (0.0-6.0); HEMATOCRIT 37 % (39-51); LYMPHOCYTES # (AUTO) 1.3 K/uL (0.8-4.8); MEAN CORPUSCULAR HGB CONC 33 g/dl (31.0-36.0); MEAN CORPUSCULAR VOLUME 85 fL (80-96); MONOCYTES # (AUTO) 0.4 K/uL (0.1-1.30); MONOCYTES % (AUTO) 6.7 % (2.0-12.0); NEUTROPHILS # (AUTO) 3.5 K/uL (1.8-8.9); NEUTROPHILS % (AUTO) 65.9 % (43.0-81.0); PLATELET COUNT (AUTO) 109 K/uL (150-450); RED BLOOD CELL COUNT(AUTO) 4.29 MIL/uL (4.5-6.0); WHITE BLOOD COUNT (AUTO) 5.3 K/uL (4.3-11.0)
[2022-09-14 01:52] LABS: CALCIUM, SERUM 8.5 mg/dL (8.5-10.1); CREATININE 1.5 mg/dL (0.6-1.3); POTASSIUM 3.9 mmol/L (3.5-5.1)
[2022-09-14 01:59] LABS: ALBUMIN 3.7 g/dL (3.4-5.0); BILIRUBIN,DIRECT 0.4 mg/dL (0.0-0.2); BILIRUBIN,TOTAL 1.4 mg/dL (0.2-1.0); TOTAL PROTEIN, SERUM 8.1 g/dL (6.4-8.2)
--- NOTE | 2022-09-14 03:24 | NUR ---
Patient discharged to home in stable condition. Written and verbal after care instructions given. Patient verbalizes understanding of instruction. IV removed. Catheter intact and site benign. Pressure and 4x4 applied to site. No bleeding noted.
== END 2022-09-14 03:24 | disposition home or self-care (01) ==
LOC: MERGE 23:34 → ER 23:34
DX: E11.65 Type 2 diabetes mellitus with hyperglycemia (principal); N17.9 Acute kidney failure, unspecified; Z59.00 Homelessness unspecified
CPT/HCPCS: 99283; 36415; 96374; 96361; 85025; 80048; 80076; 82962 ×2; J7030 ×2; J1815 ×2

== ENCOUNTER 2024-01-06 20:13 | Emergency (ER) | payer MEDICAID, OTHER ==
[~2024-01-06] VITALS: Ht 162.6 cm; Wt 70.3 kg
[2024-01-06] MEDS ORDERED: MORPHINE SULFATE INJ 2 MG/ML DISP.SYRIN ONE (23:31)
[2024-01-06] MEDS ORDERED: ONDANSETRON HCL/PF 4 MG/2 ML VIAL ONE (23:31)
[2024-01-06] MEDS ORDERED: INSULIN REGULAR, HUMAN 100 UNIT/ML 10 ML VIAL ONE (23:32)
[2024-01-06] MEDS: ONDANSETRON HCL/PF 4 MG/2 ML VIAL IVP ONE (23:33)
[2024-01-06] MEDS: MORPHINE SULFATE INJ 2 MG/ML DISP.SYRIN IV ONE (23:33)
[2024-01-06] MEDS: IV NS 0.9% 1,000 ML BAG IV ONE (23:33)
[2024-01-06] MEDS: INSULIN REGULAR, HUMAN 100 UNIT/ML 10 ML VIAL IV ONE (23:35)
[2024-01-06 23:58] LABS: BASOPHILS % (AUTO) 0.3 % (0.0-2.0); EOSINOPHILS # (AUTO) 0.1 K/uL (0.0-0.7); EOSINOPHILS % (AUTO) 1.9 % (0.0-6.0); HEMATOCRIT 39 % (39-51); HEMOGLOBIN 13.2 g/dL (13.5-17.5); LYMPHOCYTES # (AUTO) 0.8 K/uL (0.8-4.8); LYMPHOCYTES % (AUTO) 28.5 % (20.0-44.0); MEAN CORPUSCULAR HEMOGLOBIN 31 PG (26.0-33.0); MEAN CORPUSCULAR HGB CONC 34 g/dl (31.0-36.0); MEAN CORPUSCULAR VOLUME 93 fL (80-96); MONOCYTES # (AUTO) 0.1 K/uL (0.1-1.30); MONOCYTES % (AUTO) 4.7 % (2.0-12.0); NEUTROPHILS # (AUTO) 1.9 K/uL (1.8-8.9); NEUTROPHILS % (AUTO) 64.6 % (43.0-81.0); PLATELET COUNT (AUTO) 115 K/uL (150-450); RED CELL DISTRIBUTION WIDTH 14.1 % (11.5-15.0)
[2024-01-07 00:09] LABS: INR 1.06 (0.91-1.10); PARTIAL THROMBOPLASTIN TIME 27.7 SEC (24.3-34.3); PROTHROMBIN TIME 11.2 SECS (9.2-11.1)
[2024-01-07 00:17] LABS: ALANINE AMINOTRANSFERASE 103 U/L (12-78); ALBUMIN 3.8 g/dL (3.4-5.0); ALKALINE PHOSPHATASE 352 U/L (46-116); ASPARTATE AMINOTRANSFERASE 29 U/L (15-37); BILIRUBIN,DIRECT 0.4 mg/dL (0.0-0.2); CALCIUM, SERUM 9.1 mg/dL (8.5-10.1); CARBON DIOXIDE 24 mmol/L (21-32); CHLORIDE 86 mmol/L (98-107); CREATININE 2.4 mg/dL (0.6-1.3); LIPASE 10 U/L (16-77); POTASSIUM 4.2 mmol/L (3.5-5.1); SODIUM SERUM 122 mmol/L (136-145); TOTAL PROTEIN, SERUM 7.9 g/dL (6.4-8.2); UREA NITROGEN, BLOOD 16 mg/dL (7-18)
[2024-01-07 00:27] LABS: GLUCOSE 1114 mg/dL (74-106)
[2024-01-07 01:05] LABS: ABG BASE EXCESS -3.1 mmol/L; ABG OXYGEN SATURATION 96.2 % (92.0-98.5); ABG PCO2 38.5 mmHg (35.0-45.0); ABG PH 7.371 (7.350-7.450); ABG TOTAL HEMOGLOBIN 12.9 G/dL (13.5-18.0); COHb 3.3 % (0.5-1.5); MetHb 0.1 % (0.0-1.5); O2Hb 92.9 % (94.0-97.0); SITE, ABG Left Radial; VENT MODE, BG Room Air
[2024-01-07] MEDS: IV NS 0.9% 1,000 ML BAG IV ONE ×2 (01:15→02:33)
[2024-01-07] MEDS: INSULIN REGULAR, HUMAN 100 UNIT/ML 10 ML VIAL IV ONE (01:28)
[2024-01-07 02:46] LABS: APPEARANCE,URINE CLEAR (CLEAR); BILIRUBIN,URINE NEGATIVE (NEGATIVE); BLOOD, URINE TRACE-INTA Ery/uL (NEGATIVE); COLOR,URINE YELLOW (YELLOW); KETONES,URINE NEGATIVE (NEGATIVE); LEUKOCYTE ESTERASE ,URINE NEGATIVE (NEGATIVE); NITRITE, URINE NEGATIVE (NEGATIVE); PH,URINE 6.5 (5.0-8.0); PROTEIN,URINE NEGATIVE (NEGATIVE); UGLUCOSE 3+ mg/dL (NEGATIVE); UROBILINOGEN,URINE 0.2 EU/dL (0.2)
[2024-01-07 02:53] LABS: ADD URINE CULTURE NO; BACTERIA,URINE Rare /HPF (None Seen); SQUAMOUS EPITHELIAL CELL,UR Few /HPF (None Seen); WBC,URINE 0-2 /HPF (0-3)
[2024-01-07 04:50] VITALS: BP 132/82; TEMP 98.2; O2SAT 98
== END 2024-01-07 04:51 | disposition home or self-care (01) ==
LOC: ER 20:23
DX: E11.65 Type 2 diabetes mellitus with hyperglycemia (principal); K59.00 Constipation, unspecified; K86.1 Other chronic pancreatitis; E87.1 Hypo-osmolality and hyponatremia; F17.200 Nicotine dependence, unspecified, uncomplicated; Z60.2 Problems related to living alone; Z79.4 Long term (current) use of insulin; Z79.84 Long term (current) use of oral hypoglycemic drugs; Z79.899 Other long term (current) drug therapy
CPT/HCPCS: 99285; 74176; 96374; 71045; 96375; 96361 ×2; 93005; 85025; 80048; 82010; 83690; 80076; 36415 ×2; 84484 ×2; 85730; 82962 ×5; 82803; 96376; 81001; 36600 ×2; J1815; J2405; J7030 ×3; J2270

== ENCOUNTER 2025-09-24 14:55 | Emergency (ER) | payer OTHER ==
[~2025-09-24] VITALS: Ht 162.6 cm; Wt 68.0 kg
[2025-09-24 15:15] VITALS: TEMP 98.9
[2025-09-24] MEDS: IV NS 0.9% 1,000 ML BAG IV ONE ×2 (15:15→15:25)
[2025-09-24 15:23] LABS: FRACTIONATED INSPIRED OXYGEN-V 21.0 %; SITE, VBG VBG - N/A; VBG BASE EXCESS -4.2 mmol/L (-2.0-3.0); VBG HCO3 21.4 mmol/L (22.0-29.0); VBG MetHb 0.3 % (0.5-1.5); VBG OXYGEN SATURATION 58.3 % (60.0-85.0); VBG PCO2 40.8 mmHg (38.0-54.0); VBG PH 7.337 (7.320-7.430); VBG PO2 29.5 mmHg (23.0-48.0); VBG TOTAL HEMOGLOBIN 12.6 G/dL (13.5-17.5)
[2025-09-24 15:43] LABS: PLATELET COUNT (AUTO) 127 K/uL (150-450); RED BLOOD CELL COUNT(AUTO) 3.82 MIL/uL (4.5-6.0); RED CELL DISTRIBUTION WIDTH 13.9 % (11.5-15.0); WHITE BLOOD COUNT (AUTO) 5.2 K/uL (4.3-11.0)
[2025-09-24 15:56] LABS: INR 0.97 (0.91-1.10)
[2025-09-24 15:58] LABS: ASPARTATE AMINOTRANSFERASE 79.0 U/L (15-37); CREATININE 1.4 mg/dL (0.6-1.3); SODIUM SERUM 132.0 mmol/L (136-145); TOTAL PROTEIN, SERUM 7.5 g/dL (6.4-8.2); UREA NITROGEN, BLOOD 34.0 mg/dL (7-18)
[2025-09-24 16:08] LABS: CALCIUM, SERUM 8.7 mg/dL (8.5-10.1)
[2025-09-24 16:19] LABS: APPEARANCE,URINE CLEAR (CLEAR); BLOOD, URINE TRACE-INTA Ery/uL (NEGATIVE); LEUKOCYTE ESTERASE ,URINE NEGATIVE (NEGATIVE); NITRITE, URINE NEGATIVE (NEGATIVE); UGLUCOSE 3+ mg/dL (NEGATIVE)
[2025-09-24 16:39] LABS: ADD URINE CULTURE NO; SQUAMOUS EPITHELIAL CELL,UR Few /HPF (None Seen)
[2025-09-24] MEDS ORDERED: INSULIN REGULAR, HUMAN 100 UNIT/ML 10 ML VIAL ONE (16:47)
[2025-09-24] MEDS: INSULIN REGULAR, HUMAN 100 UNIT/ML 10 ML VIAL IV ONE (16:51)
[2025-09-24 17:35] VITALS: BP 127/77; O2SAT 98
== END 2025-09-24 17:36 ==
LOC: ER 15:00
DX: E11.65 Type 2 diabetes mellitus with hyperglycemia (principal); F17.200 Nicotine dependence, unspecified, uncomplicated; K76.0 Fatty (change of) liver, not elsewhere classified; Z79.4 Long term (current) use of insulin; Z79.84 Long term (current) use of oral hypoglycemic drugs; Z79.899 Other long term (current) drug therapy; Z87.19 Personal history of other diseases of the digestive system; Z60.2 Problems related to living alone
CPT/HCPCS: 99285; 96374; 96361; 93005; 82803 ×2; 85025; 80048; 83690; 80076; 81001; 36415; 85730; J1815; J7030